=== PATIENT | male | born 1930 ===

== ENCOUNTER 2019-03-13 06:22 | Day surgery (SDC) | payer OTHER ==
[~2019-03-13 06:22] MED LIST: AMIODARONE HCL100 MG PO; COZAAR50 MG PO; ELIQUIS2.5 MG PO; FOLIC ACID0.4 MG PO; KEPPRA500 MG PO; VITAMIN B-12250 MCG PO; VITAMIN C1000 MG PO
== END 2019-03-13 11:05 | disposition home or self-care (01) ==
LOC: CIR.AMB 06:22
DX: M65.842 Other synovitis and tenosynovitis, left hand (principal)